=== PATIENT | female | born 1945 | race Caucasian/White ===

== ENCOUNTER → 2017-04-10 | Outpatient (CLI) | payer MEDICARE, SELFPAY | PROVIDERS: PCP Internal Medicine Adolescent Medicine; Visit Provider Internal Medicine Adolescent Medicine | DX: R91.8 Other nonspecific abnormal finding of lung field (principal) | CPT/HCPCS: 71250 ==

== ENCOUNTER → 2018-02-19 14:09 | Outpatient (CLI) | payer MEDICARE, SELFPAY ==
--- NOTE | 2018-02-19 14:12 | US_ITS ---
US kidney retroperitoneal comp HISTORY: ITS.REASON: URINARY RETENTION ORDERING PHYSICIAN: Rom Menjivar MD PATIENT AGE: 72 years Comparison: None FINDINGS: RIGHT KIDNEY:Unremarkable. Normal size and echogenicity. No hydronephrosis 11 x 4 x 7 cm LEFT KIDNEY:Unremarkable. No hydronephrosis. Normal size and echogenicity. 13 x 5 x 5 cm OTHER FINDINGS: No cortical thinning. Bilateral blood flow is present IMPRESSION: Unremarkable bilateral renal ultrasound. No hydronephrosis
[2018-02-19 15:52] LABS: Anion Gap 11.7 mEq/L (5-15); Blood Urea Nitrogen 8 mg/dL (7-18); Calcium 9.3 mg/dL (8.5-10.1); Carbon Dioxide 29 mmol/L (21.0-32.0); Chloride 102 mmol/L (98-107); Creatinine,Serum 0.64 mg/dL (0.55-1.02); Estimated Glomerular Filt Rate 91 ml/min (>60); GFR (African American) 111 ML/MIN (>60); Glucose 96 mg/dL (74-106); Potassium 3.7 mmoL/L (3.5-5.1); Sodium 139 mmol/L (136-145)
== END ==
PROVIDERS: PCP Internal Medicine Adolescent Medicine; Visit Provider Internal Medicine Adolescent Medicine
DX: R33.9 Retention of urine, unspecified (principal)
CPT/HCPCS: 36415; 76770; 80048

== ENCOUNTER → 2018-06-10 10:33 | Outpatient (CLI) | payer MEDICARE, SELFPAY ==
--- NOTE | 2018-06-10 10:42 | MM_ITS ---
MM Dig screening mamm BI w/CAD CAD Screening COMPARISON: Digital mammograms with CAD 02/14/2017 and 07/25/2015 INDICATION: There is no personal or family history of breast cancer TECHNIQUE: Standard CC and MLO images were obtained. R2 CAD reviewed. FINDINGS: Prominent diffuse heterogenic fibroglandular densities are seen throughout both breast. There are scattered benign-appearing microcalcifications in each breast. There is a new and somewhat suspicious asymmetric density upper aspect of the right breast only definitely seen on the MLO view. Recommend the patient return for spot compression views in MLO and CC projection. I am not certain of the location of the suspicious lesion on the CC projection and recommend rolled cc views as well and possibly ultrasound as necessary as well. There are no suspicious microcalcifications. IMPRESSION: Prominent diffuse heterogenic breast density with possible developing asymmetric lesion right breast BI-RADS Category: 0 Need Additional Imaging Evaluation RECOMMENDED FOLLOW-UP: IMM - IMMEDIATE FOLLOW-UP RECOMMENDED (A letter has been sent to the patient regarding results of the study.)
--- NOTE | 2018-06-10 10:42 | XR_ITS ---
XR DEXA axial skeleton HISTORY: ITS.REASON: POST MENOPAUSAL SCREENING ORDERING PHYSICIAN: Rom Menjivar MD PATIENT AGE: 72 years COMPARISON: 07/25/2015 FINDINGS: The BMD measured at the Right femoral neck is 0.749 g/cm squared with a T score of -2.1. This is considered Osteopenic according to the World Health Organization criteria. Fracture risk is Moderate. Treatment is advised. L1 L4 density has a T score of 2.2 and has increased by 5.7%. The main hip density is unchanged. IMPRESSION: Osteopenia with moderate fracture risk. Treatment is advised. Suggest follow-up exam May 2020
== END ==
PROVIDERS: PCP Internal Medicine Adolescent Medicine; Visit Provider Internal Medicine Adolescent Medicine
DX: Z12.31 Encounter for screening mammogram for malignant neoplasm of breast (principal); Z13.820 Encounter for screening for osteoporosis; Z78.0 Asymptomatic menopausal state
CPT/HCPCS: 77067; 77080

== ENCOUNTER → 2018-06-26 14:15 | Outpatient (CLI) | payer MEDICARE, SELFPAY ==
--- NOTE | 2018-06-26 14:19 | MM_ITS ---
MM Dig mamm DX unilat RT CAD, US breast RT complete INDICATION: Follow-up abnormal mammogram ORDERING PHYSICIAN: Rom Menjivar MD PATIENT AGE: 72 years COMPARISON: 06/10/2018, 03/04/2017, 07/25/2015 TECHNIQUE: Problem-solving views performed of the right breast along with right breast ultrasound. FINDINGS: Dense fibroglandular tissue which decreases the sensitivity of mammography. The asymmetric nodular density in the superior aspect of the right breast appear somewhat less apparent on the spot view. The density noted in the medial aspect of the right breast is not well demonstrated on the spot view and may been due to fibroglandular tissue also not well demonstrated on the rolled views. There is however persistent 5 mm nodular opacity in the central aspect of the right breast. Right-sided ductal ectasia also suspected. Right breast ultrasound: There is ductal ectasia. At 10:00 there is a 5 mm cyst along small nodes in the right axilla. IMPRESSION: No convincing evidence of malignancy. Nodular opacity and central aspect of the breast may correspond to a cyst. Recommend 6 month mammographic and sonographic follow-up of the right breast BI-RADS Category: 3 Probably Benign Finding Short Term Follow-up RECOMMENDED FOLLOW-UP: 6M - 6 MONTH FOLLOW-UP (A letter has been sent to the patient regarding results of the study.)
== END ==
PROVIDERS: PCP Internal Medicine Adolescent Medicine; Visit Provider Internal Medicine Adolescent Medicine
DX: R92.8 Other abnormal and inconclusive findings on diagnostic imaging of breast (principal)
CPT/HCPCS: 76641; 77065

== ENCOUNTER → 2018-11-28 15:06 | Outpatient (CLI) | payer MEDICARE, SELFPAY ==
--- NOTE | 2018-11-28 15:18 | CT_ITS ---
PROCEDURE: CT LUNG SCREENING CLINICAL INDICATION: HX NICOTINE DEPENDENCE COMPARISON: [facility] CT CHEST W/O CONTRAST from 04/10/2017 TECHNIQUE: The exam was performed on a GE Light Speed [address] scanner using 2.90 mGy CTDI. A low dose helical CT CHEST was performed on a multi-detector scanner. All CT scans at the facility use one or more dose reduction, viz: automated exposure control, ma/kV adjustment per patient size (including targeted exams where dose is matched to indication, i.e. head), or iterative reconstruction technique. The LDCT was performed in a facility that meets the criteria for the screening program. Data regarding this exam was submitted to ACR which is an approved registry. The order for this exam indicates that it came as a result of a lung cancer screening counseling shard decision-making visit that included all the elements required of such a visit including smoking cessation. The radiologist interpreting this exam meets the CMS criteria for the LDCT lung cancer screening program. The exam is reported using the Lung-RADS classification scale and reported to the ACR registry. NOTE: This study was performed for the specific purposes of lung cancer screening and is not an alternative to diagnostic chest CT. RADIATION DOSE: CTDI vol(CT dose Index-volume) = 2.90mG DLP (Dose Length Product) = 100.81 mGcm FINDINGS: Artifact is present from anterior cervical disc fusion. There are scattered noncalcified pulmonary nodules. These appear stable when compared to the previous exam. The largest nodule is in the right upper lobe anteriorly at approximately 5 mm. Calcified granuloma is present in the left upper lobe. There are centrilobular emphysematous changes. There are fibrotic changes within the lingula OTHER FINDINGS: Coronary artery calcifications. 1.5 cm hepatic cyst at the region of the IVC IMPRESSION: Centrilobular emphysema with scattered pulmonary nodules unchanged Lung rads category 2 benign findings Recommendations: 12 month LDCT follow-up Dictated by: Anatoliy Lee MD 12/08/2018 13:18 Signed by: <Electronically signed by Anatoliy Lee MD in [place]> 12/08/2018 13:18
== END ==
PROVIDERS: PCP Internal Medicine Adolescent Medicine; Visit Provider Internal Medicine Adolescent Medicine
DX: Z87.891 Personal history of nicotine dependence (principal); Z12.2 Encounter for screening for malignant neoplasm of respiratory organs

== ENCOUNTER → 2018-12-19 12:54 | Outpatient (CLI) | payer MEDICARE, SELFPAY ==
--- NOTE | 2018-12-19 12:58 | MM_ITS ---
PROCEDURE: MM DIG MAMM DX UNILAT RT CAD CLINICAL INDICATION: ABNORMAL MAMM COMPARISON: DXRT MM Dig mamm DX unilat RT CAD from 06/26/2018 US BREAST RT COMPLETE from 12/19/2018 TECHNIQUE: Standard CC and MLO images were obtained. R2 CAD reviewed. Spot-compression MLO and CC views obtained as well. FINDINGS: Diffuse heterogenic fibroglandular densities are again noted. The asymmetric density central portion is somewhat less prominent on today's study. There are no new or suspicious lesions seen a few scattered benign-appearing calcifications are again noted. Ultrasound performed same date showed a stable small cystic lesion at the 10 o'clock position IMPRESSION: Stable exam with no suspicious lesions seen BI-RAD Category: 3 Probably Benign Finding Short Term Follow-up FOLLOW-UP: 6M 6Month Follow-up to return to normal yearly screening schedule (A letter has been sent to the patient regarding results of the study.) Dictated by: Dr. Tomas De La Rosa MD 12/19/2018 14:[address] Tomas De La Rosa MD in [place] 12/19/2018 14:21
--- NOTE | 2018-12-19 12:58 | US_ITS ---
PROCEDURE: US BREAST RT COMPLETE CLINICAL INDICATION: ABNORMAL MAMM COMPARISON: BREASTRT US breast RT complete from 06/26/2018 FINDINGS: There is a small oval hypoechoic cystic-appearing lesion at the 10 o'clock position near the nipple measuring 0.5 by 0.6 x 0.2 cm stable and unchanged in appearance from the previous exam. There is mild ductal ectasia in the subareolar region. There are couple normal appearing nodes in the axilla. IMPRESSION: Stable small benign-appearing cystic lesion as described recommended patient continue yearly screening mammography Dictated by: Dr. Tomas De La Rosa MD 12/19/2018 14:[address] Tomas De La Rosa MD in [place] 12/19/2018 14:28
== END ==
PROVIDERS: PCP Internal Medicine Adolescent Medicine; Visit Provider Internal Medicine Adolescent Medicine
DX: R92.8 Other abnormal and inconclusive findings on diagnostic imaging of breast (principal)
CPT/HCPCS: 76641; 77065

== ENCOUNTER → 2019-01-22 14:25 | Outpatient (CLI) | payer MEDICARE, SELFPAY ==
--- NOTE | 2019-01-22 14:33 | MR_ITS ---
PROCEDURE: MR LUMBAR SPINE WO CON CLINICAL INDICATION: RIGHT SCIATIC NERVE PAIN Low back pain radiating into the right lower extremity COMPARISON: No exams were available for comparison TECHNIQUE: Standard multiplanar multiecho sequences are performed without contrast. 3-D MIP and myelographic images are also rendered and reviewed FINDINGS: Spine the spinal cord ends at the T12-L1 level. In T12-L1: Mild concentric bulging disc with mild degenerative disc disease. Mild bilateral lateral recess narrowing. L1-L2: There is a small to medium sized right paracentral disc herniation with superior extrusion. The superiorly extruded portion of the disc measures 16 mm in length and 13 mm in with and is approximately 5 mm in thickness. This does cause right lateral recess narrowing and abuts the cauda equina on the right with right lateral recess narrowing somewhat accentuated by the facet and ligamentum hypertrophic changes. There is mild degenerative disc disease with mild bulging disc also at this level. There is moderate to severe right-sided foraminal narrowing as well. L2-L3: Bulging disc along with moderate facet and ligamentum hypertrophy with moderate bilateral lateral recess narrowing and moderate to severe right-sided foraminal narrowing L3-L4: Bulging disc with moderate to severe facet and ligamentum hypertrophy with severe bilateral lateral recess and moderate to severe bilateral foraminal narrowing with canal stenosis. The canal measures 7 mm. L4-5: Degenerate disc disease. There is 5 mm anterolisthesis of L4 with bulging disc at this level along with facet ligamentum hypertrophy with moderate to severe right foraminal narrowing and severe left foraminal narrowing along with bilateral lateral recess narrowing greater on the left. There is borderline narrowing of the canal at 12 mm. L5-S1: Degenerate disc disease with bulging disc with facet and ligamentum hypertrophy with mild to moderate right foraminal narrowing and moderate to severe left foraminal narrowing. No fracture or dislocation. IMPRESSION: 1. Abnormal MRI of the lumbar spine with multilevel degenerative disc disease along with facet and ligamentum hypertrophy with areas of foraminal and lateral recess narrowing along with canal stenosis. Please see above for detailed description at each level. 2. L1-L2: There is a small to medium sized right paracentral disc herniation with superior extrusion. The superiorly extruded portion of the disc measures 16 mm in length and 13 mm in with and is approximately 5 mm in thickness. This does cause right lateral recess narrowing and abuts the cauda equina on the right with right lateral recess narrowing somewhat accentuated by the facet and ligamentum hypertrophic changes. There is mild degenerative disc disease with mild bulging disc also at this level. There is moderate to severe right-sided foraminal narrowing as well. 3. L2-L3: Bulging disc along with moderate facet and ligamentum hypertrophy with moderate bilateral lateral recess narrowing and moderate to severe right-sided foraminal narrowing 4. L3-L4: Bulging disc with moderate to severe facet and ligamentum hypertrophy with severe bilateral lateral recess and moderate to severe bilateral foraminal narrowing with canal stenosis. The canal measures 7 mm. 5. L4-5: Degenerate disc disease. There is 5 mm anterolisthesis of L4 with bulging disc at this level along with facet ligamentum hypertrophy with moderate to severe right foraminal narrowing and severe left foraminal narrowing along with bilateral lateral recess narrowing greater on the left. There is borderline narrowing of the canal at 12 mm. 6. L5-S1: Degenerate disc disease with bulging disc with facet and ligamentum hypertro
== END ==
PROVIDERS: PCP Internal Medicine Adolescent Medicine; Visit Provider Internal Medicine Adolescent Medicine
DX: M54.31 Sciatica, right side (principal)
CPT/HCPCS: 72148; 76376

== ENCOUNTER → 2019-10-12 14:54 | Outpatient (CLI) | payer MEDICARE, SELFPAY ==
--- NOTE | 2019-10-12 14:58 | MM_ITS ---
PROCEDURE: MM DIG SCREENING MAMM BI W/CAD Digital Breast Tomosynthesis Included CLINICAL INDICATION: ABN MAMM There is no personal or family history of breast cancer. COMPARISON: [facility] DIG MAMM-SCREEN [facility] from 07/25/2015 [facility] DIG MAMM-SCREEN [facility] W/CAD from 02/14/2017 [facility] MM Dig screening mamm BI w/CAD from 06/10/2018 [facility] MM Dig mamm DX unilat RT CAD from 06/26/2018 MM DIG MAMM DX UNILAT RT CAD from 12/19/2018 TECHNIQUE: Standard CC and MLO images and 3D Tomosynthesis was obtained. R2 CAD reviewed. FINDINGS: Is heterogenic fibroglandular densities are seen throughout both breasts and the findings are fairly symmetrical bilaterally. There are scattered benign-appearing micro and macrocalcifications in each breast. There is a mole marker left breast. There is a biopsy clip left breast. There is no new or suspicious lesion in either breast and no suspicious microcalcifications. IMPRESSION: Stable dense and heterogenic parenchymal pattern with no suspicious lesions seen BI-RAD Category: 2 Benign Finding(s) FOLLOW-UP: 1YR 1 Year Follow-up (A letter has been sent to the patient regarding results of the study.) Dictated by: Dr. Tmoas De La Rosa MD 10/14/2019 14:[address] Tomas De La Rosa MD in [place] 10/14/2019 14:46
--- NOTE | 2019-10-12 14:59 | US_ITS ---
PROCEDURE: US BREAST RT COMPLETE CLINICAL INDICATION: ABN MAMM COMPARISON: US BREAST RT COMPLETE from 12/19/2018 FINDINGS: Small ductal area noted at 10 o'clock and in the retroareolar region. Small nodes in the axilla. No malignant appearing mass or malignant-appearing microcalcification IMPRESSION: Benign findings. BI-RADS category 2. Recommend annual follow-up Dictated by: Anatoliy Lee MD 10/16/2019 13:07 Electronically signed by Anatoliy Lee MD in [place] 10/16/2019 13:07
== END ==
PROVIDERS: PCP Internal Medicine Adolescent Medicine; Visit Provider Internal Medicine Adolescent Medicine
DX: R92.8 Other abnormal and inconclusive findings on diagnostic imaging of breast (principal); Z12.31 Encounter for screening mammogram for malignant neoplasm of breast
CPT/HCPCS: 76641; 77063; 77067

== ENCOUNTER → 2020-04-14 15:27 | Outpatient (CLI) | payer MEDICARE, SELFPAY ==
--- NOTE | 2020-04-14 | CA_ITS ---
APPROVED REPORT Right Lower Extremity Venous Study for DVT. [employer] Operator: AMINA Indications Lower Extremity Pain: Right Current Smoker Patient denies trauma. States her right leg began hurting several weeks ago. The leg will be fine when she wakes up but hurts and swells as the day progresses. Vein Imaging CFV (R): compressive, spontaneous, phasic, augmentation FEM (R): compressive, spontaneous, phasic, augmentation POP (R): compressive, spontaneous, phasic, augmentation PTV (R): Compressible GSV (R): compressive, spontaneous, phasic, augmentation SSV (R): Compressible Peroneals (R):Compressible GAS (R): Compressible Findings No evidence of DVT or superficial thrombophlebitis in the veins scanned of the right lower extremity. Conclusion No evidence of DVT or superficial thrombophlebitis in the veins scanned of the right lower extremity. Electronically signed by : Anatoliy Lee MD 04/18/2020 17:28:30
== END ==
PROVIDERS: PCP Internal Medicine Adolescent Medicine; Visit Provider Internal Medicine Adolescent Medicine
DX: M79.604 Pain in right leg (principal); R60.0 Localized edema
CPT/HCPCS: 93971

== ENCOUNTER → 2020-05-06 15:49 | Outpatient (CLI) | payer MEDICARE, SELFPAY ==
--- NOTE | 2020-05-06 15:51 | CT_ITS ---
PROCEDURE: CT LUNG SCREENING CLINICAL INDICATION: HX OF NICOTINE DEPENDENCE CURRENT SMOKER 53-79.5 pack year smoking history COPD PRIOR 11/28/18 COMPARISON: CT CT LUNG SCREENING from 11/28/2018 TECHNIQUE: The exam was performed on a GE Light Speed [address] scanner using 2.90 mGy CTDI. A low dose helical CT CHEST was performed on a multi-detector scanner. All CT scans at the facility use one or more dose reduction, viz: automated exposure control, ma/kV adjustment per patient size (including targeted exams where dose is matched to indication, i.e. head), or iterative reconstruction technique. The LDCT was performed in a facility that meets the criteria for the screening program. Data regarding this exam was submitted to ACR which is an approved registry. The order for this exam indicates that it came as a result of a lung cancer screening counseling shard decision-making visit that included all the elements required of such a visit including smoking cessation. The radiologist interpreting this exam meets the CMS criteria for the LDCT lung cancer screening program. The exam is reported using the Lung-RADS classification scale and reported to the ACR registry. NOTE: This study was performed for the specific purposes of lung cancer screening and is not an alternative to diagnostic chest CT. RADIATION DOSE: CTDI vol(CT dose Index-volume) = 2.90mG DLP (Dose Length Product) = 99.51 mGcm FINDINGS: Centrilobular emphysema . There are scattered small pulmonary nodules the largest in the right upper lobe at 5 mm not significantly changed.. No suspicious pulmonary nodules apparent. There is chronic volume loss/mild consolidation within the lingula which is slightly worse compared to the previous exam. OTHER FINDINGS: Coronary artery calcifications. Degenerative changes thoracic spine. 1.5 cm up attic cyst IMPRESSION: Lung-RADS Category 1 Negative Follow-up: Continue annual screening with LDCT in 12 months Dictated by: Anatoliy Lee MD 05/16/2020 06:38 Anatoliy Lee MD in [place] 05/16/2020 06:38
== END ==
PROVIDERS: PCP Internal Medicine Adolescent Medicine; Visit Provider Internal Medicine Adolescent Medicine
DX: Z87.891 Personal history of nicotine dependence (principal); Z12.2 Encounter for screening for malignant neoplasm of respiratory organs
CPT/HCPCS: 71271

== ENCOUNTER → 2020-12-27 11:13 | Outpatient (CLI) | payer MEDICARE, SELFPAY ==
--- NOTE | 2020-12-27 11:15 | MM_ITS ---
PROCEDURE: MM DIG SCREENING MAMM BI W/CAD Digital Breast Tomosynthesis Included CLINICAL INDICATION: SCREENING COMPARISON: MG DXRT MM Dig mamm DX unilat RT CAD from 06/26/2018 MG MM DIG MAMM DX UNILAT RT CAD from 12/19/2018 MG MM DIG SCREENING MAMM BI W/CAD from 10/12/2019 TECHNIQUE: Standard CC and MLO images and 3D Tomosynthesis was obtained. R2 CAD reviewed. FINDINGS: The breasts are heterogeneously dense which may obscure small masses. No suspicious appearing mass, malignant-appearing microcalcification, architectural distortion, or skin thickening. There benign-appearing calcifications bilaterally. A biopsy clip is present in the lower inner aspect of the left breast. IMPRESSION: Benign findings. No significant change BI-RAD Category: 2 Benign Finding FOLLOW-UP: 1 YR 1 Year Follow-up (A letter has been sent to the patient regarding results of the study.) Dictated by: Anatoliy Lee MD 01/16/2021 08:29 Anatoliy Lee MD in [place] 01/16/2021 08:29
== END ==
PROVIDERS: PCP Internal Medicine Adolescent Medicine; Visit Provider Internal Medicine Adolescent Medicine
DX: Z12.31 Encounter for screening mammogram for malignant neoplasm of breast (principal)
CPT/HCPCS: 77063; 77067

== ENCOUNTER → 2021-01-23 15:52 | Outpatient (CLI) | payer MEDICARE, SELFPAY ==
--- NOTE | 2021-01-23 15:57 | XR_ITS ---
PROCEDURE INFORMATION: Exam: XR Right Knee Exam date and time: 01/23/21 03:57 PM Age: 75 years old Clinical indication: Pain; Knee; Right; Additional info: RT anterior knee pain TECHNIQUE: Imaging protocol: XR Right knee. Views: 3 views. COMPARISON: CA VENOUS DOPPLER LE RT 04/14/20 03:38 PM FINDINGS: Bones/joints: Tricompartmental degenerative changes, most severe in the medial compartment. Large suprapatellar effusion. Soft tissues: Normal. IMPRESSION: 1. Tricompartmental degenerative changes, most severe in the medial compartment. 2. Large suprapatellar effusion.
--- NOTE | 2021-01-23 15:57 | XR_ITS ---
PROCEDURE INFORMATION: Exam: XR Right Hip Exam date and time: 01/23/21 03:57 PM Age: 75 years old Clinical indication: Hip pain; Right hip; Additional info: RT hip pain TECHNIQUE: Imaging protocol: XR Right hip. Views: 2 or 3 views hip with pelvis when performed. COMPARISON: MR LUMBAR SPINE WO CON 01/22/19 03:29 PM FINDINGS: Bones/joints: PLIF lumbar spine. Mild degenerative change. No acute fracture. Soft tissues: Unremarkable. IMPRESSION: No acute findings.
--- NOTE | 2021-01-23 15:57 | XR_ITS ---
PROCEDURE INFORMATION: Exam: XR Bilateral Sacroiliac Joints Exam date and time: 01/23/2021 3:57 PM Age: 75 years old Clinical indication: Other: Right hip pain; Prior surgery; Surgery type: Lower back; Additional info: RT hip pain TECHNIQUE: Imaging protocol: XR Bilateral XR of the sacroiliac joints. Views: 3 or more views. COMPARISON: MR LUMBAR SPINE WO CON 01/22/2019 3:29 PM FINDINGS: Bones/joints: Mild bilateral sacroiliitis, with periarticular sclerosis and mild inferior periarticular spurring. No ankylosis. No lytic erosive changes. Bones overall appear slightly demineralized. No acute fracture or dislocation.There are no lytic skeletal lesions seen. There is a 1 cm sclerotic lesion projected over the right sacrum, which could be a small bone island, superimposed vascular calcification, or less likely aggressive blastic neoplasm. No other blastic lesions are seen in the visualized pelvis. There are mild degenerative changes of the hip joints greater on the left. There are lower lumbar degenerative and surgical changes, with disc disease, spondylosis, facet arthropathy, fusion hardware. Soft tissues: No acute findings in the soft tissues. Some vascular calcifications noted in the pelvis. IMPRESSION: 1. Mild bilateral sacroiliitis, with slight periarticular sclerosis and spurs. 2. No ankylosis or lytic changes at the sacroiliac joints. 3. No acute fracture or dislocation. 4. Mild hip degenerative changes, which appear greater on the left. 5. Lumbosacral degenerative and surgical changes. 6. Additional nonemergency and chronic appearing findings as above.
== END ==
PROVIDERS: PCP Internal Medicine Adolescent Medicine; Visit Provider Internal Medicine Adolescent Medicine
DX: M25.551 Pain in right hip (principal); M25.561 Pain in right knee; M53.3 Sacrococcygeal disorders, not elsewhere classified
CPT/HCPCS: 72202; 73502; 73562

== ENCOUNTER → 2021-06-20 13:42 | Outpatient (CLI) | payer MEDICARE, SELFPAY ==
--- NOTE | 2021-06-20 14:20 | CT_ITS ---
FINAL REPORT TECHNIQUE: Axial images were obtained from the lung apex to the mid abdomen by computed tomography. Low-dose protocol was utilized. CLINICAL HISTORY: H/O NICOTINE DEPENDENCE, smoker for 54 years, 1pack per day, copd COMPARISON: 05/06/2020 FINDINGS: CHEST CT LOW DOSE CTDI vol (mGy): 2.7 DLP (mGy-cm): 95.1 There is no axillary adenopathy. There is no hilar or mediastinal adenopathy. The heart is normal in size. There is no pericardial or pleural effusion. Lung window images demonstrate no suspicious infiltrate or nodule. There is moderate scarring and mild emphysema. Several calcified granulomas are identified. Limited images of the upper abdomen demonstrate mild adrenal gland enhancement, may represent hyperplasia or adenomas. IMPRESSION: Lung RADS category 1. Recommend 12 month follow-up low-dose chest CT. Reviewed, Interpreted and Dictated by Vitor Parnell III, MD Transcribed by Mayela Garcia Authenticated by Vitor Parnell III, MD on 06/20/2021 04:14:49 PM [facility]
== END ==
PROVIDERS: PCP Internal Medicine Adolescent Medicine; Visit Provider Internal Medicine Adolescent Medicine
DX: Z87.891 Personal history of nicotine dependence (principal); Z12.2 Encounter for screening for malignant neoplasm of respiratory organs
CPT/HCPCS: 71271

== ENCOUNTER → 2021-12-22 15:28 | Outpatient (CLI) | payer MEDICARE, SELFPAY | PROVIDERS: PCP Internal Medicine Adolescent Medicine; Visit Provider Orthopaedic Surgery | DX: Z01.812 Encounter for preprocedural laboratory examination (principal); Z20.822 Contact with and (suspected) exposure to COVID-19 | CPT/HCPCS: C9803; U0003; U0005 ==

== ENCOUNTER 2022-02-23 11:00 | Outpatient (RCR) | payer MEDICARE, SELFPAY | END 2022-02-23 11:05 | disposition home or self-care (01) | LOC: PT 11:00 | PROVIDERS: PCP Internal Medicine Adolescent Medicine; Visit Provider Orthopaedic Surgery | DX: M17.11 Unilateral primary osteoarthritis, right knee; Z96.651 Presence of right artificial knee joint | CPT/HCPCS: 97010; 97014; 97016; 97110; 97140; 97163; 97164; G0283 ==

== ENCOUNTER → 2022-08-03 14:53 | Outpatient (CLI) | payer MEDICARE, SELFPAY ==
--- NOTE | 2022-08-03 14:57 | CT_ITS ---
FINAL REPORT CLINICAL HISTORY: CANCER SCREENING SMOKES 1 PK PER DAY X 55 YRS FAMILY HISTORY OF LUNG CA COMPARISON: 06/20/2021 and 11/28/2018 FINDINGS: Low-Dose Chest CT Axial images were obtained from the lung apex to the mid abdomen by computed tomography. Low-dose protocol was utilized. CTDI vol (mGy): 2.90 DLP (mGy-cm): 106.81 There is no axillary adenopathy. There is no hilar adenopathy. There is mild mediastinal adenopathy, stable. This is nonspecific and may be reactive. The heart is proper size. There is no pericardial or pleural effusion. Lung window images demonstrate moderate changes of emphysema and mild pulmonary scarring. There are several small pulmonary nodules with the largest measuring 5 mm in the right upper lobe, stable since 2019. No new mass or nodule is identified. Limited images of the upper abdomen are unremarkable. IMPRESSION: Stable pulmonary nodules since 2019. No new mass or nodule identified. Lung RADS category 1. Recommend 12 month follow-up low-dose chest CT. Reviewed, Interpreted and Dictated by Vitor Parnell III, MD Transcribed by Claudia Brady Authenticated and [facility]
== END ==
PROVIDERS: PCP Internal Medicine Adolescent Medicine; Visit Provider Internal Medicine Adolescent Medicine
DX: Z87.891 Personal history of nicotine dependence (principal); Z12.2 Encounter for screening for malignant neoplasm of respiratory organs
CPT/HCPCS: 71271

== ENCOUNTER → 2022-08-09 13:03 | Outpatient (CLI) | payer MEDICARE, SELFPAY ==
--- NOTE | 2022-08-09 13:07 | MM_ITS ---
PROCEDURE INFORMATION: Exam: MG Bilateral Screening 3D Mammography Exam date and time: 08/09/2022 1:04 PM Age: 76 years old Clinical indication: Screening examination TECHNIQUE: Imaging protocol: Bilateral Screening tomosynthesis and 2D mammography including computer-aided detection (CAD) when performed. COMPARISON: 1. MG MM DIG SCREENING MAMM BI W/CAD 12/27/2020 11:13 AM 2. MG MM DIG SCREENING MAMM BI W/CAD 10/12/2019 3:01 PM 3. MG MM DIG MAMM DX UNILAT RT CAD 12/19/2018 1:17 PM 4. MG DXRT MM Dig mamm DX unilat RT CAD 06/26/2018 3:18 PM FINDINGS: MAMMOGRAPHY: Breast composition: The breast is heterogeneously dense, which may obscure small masses. Mass: None. Architectural distortion: No new or suspicious architectural distortion. Calcifications: Stable benign-appearing calcifications are present. No new or suspicious cluster of microcalcifications have developed. Asymmetric density: No new or suspicious asymmetric density is present Skin thickening: None. Axillary adenopathy: None. IMPRESSION: No mammographic evidence of malignancy. Recommend annual screening mammography unless otherwise clinically indicated. ASSESSMENT: BI-RADS category 2: Benign
== END ==
PROVIDERS: PCP Internal Medicine Adolescent Medicine; Visit Provider Internal Medicine Adolescent Medicine
DX: Z12.31 Encounter for screening mammogram for malignant neoplasm of breast (principal)
CPT/HCPCS: 77063; 77067

== ENCOUNTER → 2022-12-28 15:15 | Outpatient (CLI) | payer MEDICARE, SELFPAY ==
--- NOTE | 2022-12-28 15:18 | XR_ITS ---
FINAL REPORT CLINICAL HISTORY: cough, soa COMPARISON: None FINDINGS: Two views of the chest were obtained. There is hyperinflation compatible with chronic obstructive pulmonary disease. The heart size and pulmonary vascularity are within normal limits. The mediastinum is normal. No acute pulmonary abnormality is identified. There is no pneumothorax. The bony thorax is intact. There are postoperative changes noted in the lower cervical spine. IMPRESSION: Hyperinflation consistent with COPD. No acute pulmonary abnormality. Reviewed, Interpreted and Dictated by Vitor Parnell III, MD Transcribed by Bre Landry Authenticated and [facility]
== END ==
PROVIDERS: PCP Internal Medicine Adolescent Medicine; Visit Provider Student in an Organized Health Care Education/Training Program
DX: R05.9 Cough, unspecified (principal); R06.00 Dyspnea, unspecified; J32.9 Chronic sinusitis, unspecified
CPT/HCPCS: 71046; 87635

== ENCOUNTER 2023-02-18 17:29 | Emergency (ER) | payer MEDICARE, SELFPAY ==
--- NOTE | 2023-02-18 18:35 | PC.NURSE ---
PT CANT GO TO THE BATHROOM RIGHT NOW
[2023-02-18 18:47] VITALS: BP 150/71; PULSE 81; RESP 18; TEMP 36.8; O2SAT 97; BMI 21.9
[2023-02-18 18:55] VITALS: BMI 21.9
--- NOTE | 2023-02-18 18:57 | CT_ITS ---
PROCEDURE INFORMATION: Exam: CT Abdomen And Pelvis Without And With Contrast Exam date and time: 02/18/2023 8:47 PM Age: 77 years old Clinical indication: Abdominal pain; Additional info: Abd pain TECHNIQUE: Imaging protocol: Computed tomography of the abdomen and pelvis without and with contrast. Radiation optimization: All CT scans at this facility use at least one of these dose optimization techniques: automated exposure control; mA and/or kV adjustment per patient size (includes targeted exams where dose is matched to clinical indication); or iterative reconstruction. Contrast material: ISOVUE; Contrast volume: 75 ml; Contrast route: INTRAVENOUS (IV); REPORTING DATA: Count of CT and Cardiac NM exams in prior 12 months: This patient has received [address] and 0 known cardiac nuclear medicine studies in the 12 months prior to the current study. COMPARISON: CR XR HIP RT 2-3V W/PELVIS 01/23/2021 4:30 PM FINDINGS: Lungs: Lung bases are clear. Liver: 9 mm fluid density lesion compatible with cyst in the superior left lobe of liver on axial image 13 of series 5. Subcentimeter low-density lesion in the anterior liver on image 20 which is too small to characterize but likely a cyst. These lesions are also visible CT chest 04/10/2017. No follow-up of these lesions advised. Gallbladder and bile ducts: Normal. No calcified stones. No ductal dilation. Pancreas: Normal. No ductal dilation. Spleen: Normal. No splenomegaly. Adrenal glands: Normal. No mass. Kidneys and ureters: Normal. No hydronephrosis. Stomach and bowel: Diverticula noted throughout the colon. Colon otherwise unremarkable with no evidence of diverticulitis. GI tract structures otherwise unremarkable with no evident wall thickening allowing for incomplete distention. Appendix: Appendix is normal. No evidence of appendicitis. Intraperitoneal space: Unremarkable. No free air. No significant fluid collection. Vasculature: Atherosclerotic changes of the aorta and iliacs noted. No evidence of aneurysm. Lymph nodes: Unremarkable. No enlarged lymph nodes. Urinary bladder: Unremarkable as visualized. Reproductive: Unremarkable as visualized. Bones/joints: Unremarkable. No acute fracture. Soft tissues: Unremarkable. IMPRESSION: No acute abnormalities of the abdomen and pelvis. Nonemergent findings as above.
--- OUTSIDE RECORDS SUMMARY | 2023-02-18 19:03 | XMS_ITS | Patient Health Record ---
Author Name Unknown Organization [facility] Address [address] [facility] [address] [place] [address] Care Team Providers Care [employer] Name Role Phone Rom Menjivar Primary Care Provider ALLERGIES Allergen (clinical drug ingredient) Drug/Non Drug Allergy documented on EMR Reaction Allergy Type Onset Date Status Lortab 5/500 Unknown Drug Allergy Acti ve omeprazole omeprazole could not void Drug Allergy Active RESULTS Component Value Reference Range Notes LIPID PANEL, STANDARD (7600) Reviewed date:07/19/2022 08:48:35 AM Interpretation: Performing Lab:[facility] [employer] [id number] [facility], [id number] [place] Notes/Report: NON-FASTING; NON-FASTING; NON-FASTING CHOLESTEROL, TOTAL 156 <200 mg/dL HDL CHOLESTEROL 54 > OR = 50 mg/dL TRIGLYCERIDES 98 <150 mg/dL LDL-CHOLESTEROL 83 Reference range: <100 Desirable range <100 mg/dL for primary prevention; <70 mg/dL for patients with CHD or diabetic patients with > or = 2 CHD risk factors. LDL-C is now calculated using the Leigh calculation, which is a validated novel method providing better accuracy than the Friedewald equation in the estimation of LDL-C. Domenico VILLAR et al. AMY. 2013;310(19): 0864-7674 (http://education.Norstel.Oobafit/faq/ZOP983) CHOL/HDLC RATIO 2.9 <5.0 (calc) NON HDL CHOLESTEROL 102 <130 mg/dL (calc)
[2023-02-18 19:21] LABS: Basophils % 0.2 % (0.1-2.0); Eosinophils # 0.3 K/mm3 (0.0-0.4); Eosinophils % 2.6 % (0.1-12.0); Hematocrit 41.6 % (37.0-47.0); Hemoglobin 14.8 g/dL (12.2-16.2); Lymphocytes # 1.7 K/mm3 (0.7-4.5); Lymphocytes % 14.5 % (10-50); Mean Corpuscular HGB Conc 35.7 g/dL (31.8-35.4); Mean Corpuscular Hemoglobin 33.3 pg (27.0-31.2); Mean Corpuscular Volume 93.3 fl (81-99); Mean Platelet Volume 11.7 fl (7.4-10.4); Monocytes # 0.5 K/mm3 (0.1-1.0); Monocytes % 3.9 % (1.7-9.3); Neutrophils # 9.3 K/mm3 (1.8-7.8); Neutrophils % 78.7 % (37.0-80.0); Platelet Count 193 K/mm3 (142-424); Red Blood Count 4.45 M/mm3 (4.20-5.40); Red Cell Distribution Width 13.2 % (11.5-17.5); White Blood Count 11.8 K/mm3 (4.8-10.8)
[2023-02-18 19:28] LABS: Alanine Aminotransferase 21 U/L (12-78); Albumin Level 4.7 g/dl (3.5-5.0); Albumin/Globulin Ratio 1.7 (1.1-1.8); Alkaline Phosphatase 107 U/L (38-126); Anion Gap 12.5 mEq/L (5-15); Aspartate Amino Transferase 30 U/L (14-36); Bilirubin,Total 0.5 mg/dl (0.2-1.3); Blood Urea Nitrogen 9 mg/dl (7-17); Calcium 9.6 mg/dl (8.4-10.2); Carbon Dioxide 26 mmol/L (22.0-30.0); Chloride 98 mmol/L (98-107); Creatinine Clearance Estimated 45 mL/min (50-200); Estimated Glomerular Filt Rate 155 ml/min (>60); GFR (African American) 188 ML/MIN (>60); Globulin 2.7 g/dL (1.3-3.2); Glucose 116 mg/dl (74-100); Lipase 35 U/L (23-300); Potassium 3.5 mmoL/L (3.5-5.1); Sodium 133 mmol/L (136-145); Total Protein,Serum 7.4 g/dl (6.3-8.2)
--- NOTE | 2023-02-18 19:29 | PC.NURSE ---
patient assisted to bathroom
[2023-02-18 19:42] LABS: Microscopic, Urine URINE MICROSCOPIC (MICROSCOPIC)
--- NOTE | 2023-02-18 19:45 | HMH.EDGENADL ---
Discharge Plan Disposition Patient Disposition: Home, Self-Care Prescriptions Prescriptions: New prednisone 20 mg tablet 40 mg PO BID 5 Days Qty: 20 0RF nitrofurantoin monohyd/m-cryst [Macrobid] 100 mg capsule 100 mg PO BID 5 Days Qty: 10 0RF Rx Instructions: must administer with a meal/food No Action carvedilol 12.5 mg tablet 12.5 mg PO BID Patient Comments: TAKE ONE TABLET BY MOUTH TWICE DAILY bupropion HCl 150 mg tablet extended release 24 hr 150 mg PO DAILY gabapentin 100 mg capsule 100 mg PO TID Patient Comments: TAKE ONE CAPSULE BY MOUTH THREE TIMES DAILY MAY CAUSE DROWSINESS atorvastatin 40 mg tablet 40 mg PO DAILY Patient Comments: TAKE ONE TABLET BY MOUTH EVERY DAY alendronate 35 mg tablet 35 mg PO WEEKLY amlodipine 10 mg tablet 10 mg PO DAILY irbesartan 300 mg tablet 300 mg PO DAILY Patient Comments: TAKE ONE TABLET BY MOUTH EVERY DAY Stiolto Respimat 2.5-2.5 mcg/actuation mist inhalation Patient Comments: INHALE TWO PUFFS BY MOUTH EVERY DAY azithromycin [Zithromax Z-Prieto] 250 mg tablet See Rx Instructions PO .COMPLEX Qty: 6 0RF Rx Instructions: For 250 mg dose pack: take 500 mg today (day 1), then 250 mg for 4 days (days 2-5) PO prednisone 20 mg tablet 20 mg PO BID Qty: 10 0RF fluconazole 150 mg tablet 150 mg PO Q3D 0 Days Qty: 2 0RF Rx Instructions: may repeat second dose 72 hrs after first dose if symptoms persist Referrals Follow up/Referrals: Rom Menjivar MD [Primary Care Provider] - See instructions Activity Restrictions/Add. Instructions Additional Instructions/Restrictions: Macrobid twice daily for UTI, prednisone every morning for inflammation of the back. Also talked your family doctor about possibly following up with Dr. Rincon or physical therapy if back pain does not improve. Call your family doctor to establish care for this visit to the emergency department and schedule follow-up within 48 hours to ensure improvement. If you have any worsening of your condition or any other concerning signs or symptoms, return to the emergency department or your primary care doctor for further evaluation. Clinical Impressions Clinical Impression: Cystitis Back pain Qualifiers: Back pain location: low back pain Chronicity: acute Back pain laterality: right Sciatica presence: without sciatica Qualified Code(s): M54.50 - Low back pain, unspecified Discharge ED Provider: Nadeem Marshall General Adult HPI General Chief complaint: PAIN Stated complaint: back/stomach pain, no accident Time Seen by Provider: 02/18/23 17:43 Mode of Arrival: Ambulatory Source of Information: Patient Limitations: No Limitations Description of Symptoms (Recalled from ER Triage Doc. by RN): pt to ed c/o RLQ pain that started at approx 2pm. pt denies a hx of kidney stones. pt reports mild nausea, denies vomiting. pt denies any urinary symptoms. History of Present Illness HPI narrative: This is a 77-year-old female with history of chronic back pain, hypertension, hyperlipidemia presenting with flank pain and abdominal pain. Patient states that pain started few days prior to arrival. is right flank, constant, has been crescendo in nature since that time. Currently severe in intensity, radiates to right lower quadrant, associated with nausea without vomiting. Denies dysuria or hematuria, constipation, diarrhea, abnormal vaginal discharge or bleeding. Not on anticoagulation. Has not had any neurologic deficits. Has not noticed anything that makes it better or worse. Related Data Home Medications Medication Instructions Recorded Confirmed alendronate 35 mg tablet 35 mg PO WEEKLY 12/28/22 12/28/22 amlodipine 10 mg tablet 10 mg PO DAILY 12/28/22 12/28/22 atorvastatin 40 mg tablet 40 mg PO DAILY 12/28/22 12/28/22 bupropion HCl 150 mg 24 hr tablet, 150 mg PO DAILY 12/28/22 12/28/22 extended release
[2023-02-18 19:56] LABS: Appearance,Urine CLOUDY (Clear); Bilirubin,Urine Negative (Negative); Blood, Urine Negative (Negative); Color,Urine YELLOW (Yellow); Glucose,Urine (UA) Negative (Negative); Ketones,Urine Negative (Negative); Leukocyte Esterase,Urine TRACE (Negative); Nitrate,Urine Negative (Negative); Protein,Urine Negative (Negative); Urobilinogen,Urine 0.2 EU/dl (0.2)
--- NOTE | 2023-02-18 20:31 | PC.NURSE ---
Assisted patient to bathroom. Ambulated by self without issue. She requested water. confirmed ok for sips of water at this time, provided to patient. No further concerns or requests at present.
[2023-02-18 21:01] VITALS: BP 123/69; PULSE 73; RESP 16; TEMP 36.8; O2SAT 98
[2023-02-18 21:09] LABS: Amorphous Sediment,Urine 2+ /lpf; Bacteria,Urine Trace /lpf; Squamous Epithelial Cell,Urine Occasional #/hpf (0-5); WBC,Urine Occasional #/hpf (0-3)
[2023-02-18 21:30] VITALS: BP 126/65; PULSE 72; O2SAT 93
[2023-02-18 22:11] VITALS: BP 126/65; PULSE 72; RESP 18; TEMP 36.7; O2SAT 95
== END 2023-02-18 22:12 | disposition home or self-care (01) ==
PROVIDERS: Emergency Provider Emergency Medicine; PCP Internal Medicine Adolescent Medicine
DX: R10.31 Right lower quadrant pain (principal); M54.59 Other low back pain; N30.00 Acute cystitis without hematuria; R11.0 Nausea; I10 Essential (primary) hypertension; E78.5 Hyperlipidemia, unspecified; F17.210 Nicotine dependence, cigarettes, uncomplicated; J44.9 Chronic obstructive pulmonary disease, unspecified
CPT/HCPCS: 74178; 80053; 81001; 83690; 85025; 96361; 96374; 96375; 99285; J0131; J2405

== ENCOUNTER → 2023-03-01 10:55 | Outpatient (CLI) | payer MEDICARE, SELFPAY ==
[2023-03-01 11:00] LABS: Microscopic, Urine URINE MICROSCOPIC (MICROSCOPIC)
[2023-03-01 11:58] LABS: Appearance,Urine CLEAR (Clear); Bilirubin,Urine Negative (Negative); Blood, Urine Negative (Negative); Color,Urine YELLOW (Yellow); Glucose,Urine (UA) Negative (Negative); Ketones,Urine Negative (Negative); Leukocyte Esterase,Urine Negative (Negative); Nitrate,Urine Negative (Negative); Protein,Urine Negative (Negative); Urobilinogen,Urine 0.2 EU/dl (0.2)
[2023-03-01 13:45] LABS: Bacteria,Urine Trace /lpf; Squamous Epithelial Cell,Urine Occasional #/hpf (0-5); WBC,Urine Occasional #/hpf (0-3)
== END ==
PROVIDERS: PCP Internal Medicine Adolescent Medicine; Visit Provider Nurse Practitioner Family
DX: R10.31 Right lower quadrant pain (principal); M54.50 Low back pain, unspecified; R35.0 Frequency of micturition
CPT/HCPCS: 81001

== ENCOUNTER 2023-09-02 14:14 | Outpatient (CLI) | payer MEDICARE, SELFPAY ==
--- NOTE | 2023-09-02 14:21 | MM_ITS ---
PROCEDURE INFORMATION: Exam: MG Bilateral Screening 3D Mammography Exam date and time: 09/02/2023 2:22 PM Age: 77 years old Clinical indication: Screening. No family history of breast cancer. TECHNIQUE: Imaging protocol: Bilateral Screening tomosynthesis and 2D mammography including computer-aided detection (CAD) when performed. COMPARISON: 1. MG MM DIG SCREENING MAMM BI W/CAD 08/09/2022 1:04 PM 2. MG MM DIG SCREENING MAMM BI W/CAD 12/27/2020 11:13 AM 3. MG MM DIG SCREENING MAMM BI W/CAD 10/12/2019 3:01 PM 4. MG MM DIG MAMM DX UNILAT RT CAD 12/19/2018 1:17 PM FINDINGS: MAMMOGRAPHY: Breast composition: The breasts are heterogeneously dense, which may obscure small masses. Mass: None. Architectural distortion: None. Calcifications: No suspicious calcifications. Asymmetric density: None. Skin thickening: None. Axillary adenopathy: None. IMPRESSION: No mammographic evidence of malignancy. Annual screening is recommended unless otherwise clinically indicated. ASSESSMENT: BI-RADS Category 1: Negative
== END 2023-09-02 23:59 | disposition home or self-care (01) ==
LOC: RAD 14:14
PROVIDERS: PCP Internal Medicine Adolescent Medicine; Visit Provider Internal Medicine Adolescent Medicine
DX: Z12.31 Encounter for screening mammogram for malignant neoplasm of breast (principal)
CPT/HCPCS: 77063; 77067

== ENCOUNTER 2024-01-19 14:38 | Emergency (ER) | payer MEDICARE, SELFPAY ==
--- NOTE | 2024-01-19 14:55 | EXP.UTC ---
Discharge Plan Disposition Patient Disposition: Home, Self-Care Condition: Good Prescriptions Prescriptions: New benzonatate 100 mg capsule 100 mg PO TIDP PRN (Reason: Cough) Qty: 30 0RF levofloxacin 500 mg tablet 500 mg PO DAILY Qty: 7 0RF methylprednisolone 4 mg Tablets,Dose Pack 4 mg PO DIRECTED 6 Days Qty: 21 0RF Rx Instructions: Take 1 pack as directed for 6 days No Action carvedilol 12.5 mg tablet 12.5 mg PO BID Patient Comments: TAKE ONE TABLET BY MOUTH TWICE DAILY bupropion HCl 150 mg tablet extended release 24 hr 150 mg PO DAILY gabapentin 100 mg capsule 100 mg PO TID Patient Comments: TAKE ONE CAPSULE BY MOUTH THREE TIMES DAILY MAY CAUSE DROWSINESS atorvastatin 40 mg tablet 40 mg PO DAILY Patient Comments: TAKE ONE TABLET BY MOUTH EVERY DAY alendronate 35 mg tablet 35 mg PO WEEKLY amlodipine 10 mg tablet 10 mg PO DAILY irbesartan 300 mg tablet 300 mg PO DAILY Patient Comments: TAKE ONE TABLET BY MOUTH EVERY DAY Stiolto Respimat 2.5-2.5 mcg/actuation mist inhalation Patient Comments: INHALE TWO PUFFS BY MOUTH EVERY DAY azithromycin [Zithromax Z-Prieto] 250 mg tablet See Rx Instructions PO .COMPLEX Qty: 6 0RF Rx Instructions: For 250 mg dose pack: take 500 mg today (day 1), then 250 mg for 4 days (days 2-5) PO prednisone 20 mg tablet 20 mg PO BID Qty: 10 0RF fluconazole 150 mg tablet 150 mg PO Q3D 0 Days Qty: 2 0RF Rx Instructions: may repeat second dose 72 hrs after first dose if symptoms persist prednisone 20 mg tablet 40 mg PO BID 5 Days Qty: 20 0RF nitrofurantoin monohyd/m-cryst [Macrobid] 100 mg capsule 100 mg PO BID 5 Days Qty: 10 0RF Rx Instructions: must administer with a meal/food alendronate 35 mg tablet 35 mg PO WEEKLY Patient Comments: TAKE ONE TABLET BY MOUTH ONCE a WEEK gabapentin 100 mg capsule 100 mg PO DAILY Patient Comments: TAKE ONE CAPSULE BY MOUTH THREE TIMES DAILY MAY CAUSE DROWSINESS levofloxacin 750 mg tablet 750 mg PO DAILY Patient Comments: TAKE ONE TABLET BY MOUTH EVERY DAY FOR 7 DAYS -- FINISH ALL MEDICINE -- irbesartan 300 mg tablet 300 mg PO DIRECTED Patient Comments: TAKE ONE TABLET BY MOUTH EVERY DAY bupropion HCl 150 mg tablet extended release 24 hr 150 mg PO DAILY Patient Comments: TAKE ONE TABLET BY MOUTH EVERY DAY varenicline 0.5 mg tablet 0.5 mg PO DAILY Patient Comments: TAKE ONE TABLET BY MOUTH TWICE DAILY Stiolto Respimat 2.5-2.5 mcg/actuation mist 2.5 puff INHALATION DIRECTED Patient Comments: INHALE TWO PUFFS BY MOUTH EVERY DAY Referrals Follow up/Referrals: Rom Menjivar MD [Primary Care Provider] - See instructions Activity Restrictions/Add. Instructions Additional Instructions/Restrictions: Drink plenty of fluids. Take tylenol or ibuprofen for pain or fever. Take the medications as directed. Follow up with your regular doctor. GO TO THE ER FOR ANY WORSENING SYMPTOMS Don't start the oral steroids (medrol dose pack) until tomorrow since you had the shot here Clinical Impressions Clinical Impression: Left lower lobe pneumonia Instructions Patient Instructions: Pneumonia-Adult Print Language Print Language: Moroccan Discharge ED Provider: Kota Gregory [facility] General Stated complaint: weakness, fever Time Seen by Provider: 01/19/24 14:55 History of Present Illness Provider Complaint: She states that for the past 2 days she has had fatigue, low grade fever, chills, malaise, and a productive cough. Related Data Home Medications ?Medication ?Instructions ?Recorded ?Confirmed alendronate 35 mg tablet 35 mg PO WEEKLY 12/28/22 12/28/22 amlodipine 10 mg tablet 10 mg PO DAILY 12/28/22 12/28/22 atorvastatin 40 mg tablet 40 mg PO DAILY 12/28/22 12/28/22 bupropion HCl 150 mg 24 hr tablet, 150 mg PO DAILY 12/28/22 12/28/22 extended release carvedilol 12.5 mg tablet 12.5 mg PO BID 12/28/22 12/28/22 gabapentin 100 mg capsule 100 mg PO TID 12/28/22 12/28/22 irbesartan 300 mg tablet 300 mg PO DAILY 12/28/22 12/28/22 tiotropium 2.5 mcg-olodaterol 2.5 inhalation 12/28/22 12/28/22 mcg/actuation mist for inhalation (Stiolto Respimat) alendronate 35 mg tablet 35 mg PO WEEKLY 01/19/24 01/19/24 bupropion HCl 150 mg 24 hr tablet, 150 mg PO DAILY 01/19/24 01/19/24 extended release gabapentin 100 mg capsule 100 mg PO DAILY 01/19/24 01/19/24 irbesartan 300 mg tablet 300 mg PO DIRECTED 01/19/24 01/19/24 levofloxacin 750 mg tablet 750 mg PO DAILY 01/19/24 01/19/24 tiotropium 2.5 mcg-olodaterol 2.5 2.5 puff inhalation DIRECTED 01/19/24 01/19/24 mcg/actuation mist for inhalation (Stiolto Respimat) varenicline 0.5 mg tablet 0.5 mg PO DAILY 01/19/24 01/19/24 Previous Rx's ?Medication ?Instructions ?Recorded azithromycin 250 mg tablet See Rx Instructions PO .COMPLEX #6 12/28/22 (Zithromax Z-Prieto) tabs fluconazole 150 mg tablet 150 mg PO Q3D 2 doses #2 tabs 12/28/22 prednisone 20 mg tablet 20 mg PO BID #10 tabs 12/28/22 nitrofurantoin 100 mg PO BID 5 days #10 caps 02/18/23 monohydrate/macrocrystals 100 mg capsule (Macrobid) prednisone 20 mg tablet 40 mg (2 x 20 mg) PO BID 5 days 02/18/23 #20 tabs benzonatate 100 mg capsule 100 mg PO TIDP PRN Cough #30 caps 01/19/24 levofloxacin 500 mg tablet 500 mg PO DAILY #7 tabs 01/19/24 methylprednisolone 4 mg tablets in 4 mg PO DIRECTED 6 days #21 tabs 01/19/24 a dose pack Allergies Allergy/AdvReac Type Severity Reaction Status Date / Time hydrocodone [From LORTAB] Allergy Unknown PASS OUT Verified 12/28/22 13:37 [facility] Disclaimer: The information contained in this section may have been updated after the patient was seen, as this information can be updated by other users. Medical History (Updated 01/19/24 @ 15:57 by Kota Gregory APRN) History of COPD Neuropathy Hyperlipidemia Hypertension Surgical History (Updated 12/28/22 @ 13:41 by Eris Little) History of total right knee replacement Hx of tonsillectomy Family History (Updated 12/28/22 @ 13:42 by Eris Little) Other No significant family history Social History (Updated 12/28/22 @ 13:43 by Eris Little) Smoking Status: Current every day smoker tobacco type: cigarettes packs per day: 1 alcohol intake: current alcohol intake frequency: holidays/special occasions only current occupational status: retired Travel in the last 8 weeks: None ROS Obtained: Yes All systems reviewed & no additional complaints except as documented Constitutional Constitutional: Reports chills, Reports fever(s) and Denies headache(s) Eyes Eyes: Denies eye discharge ENT Ears, Nose, Mouth, and Throat: Reports as per HPI and Denies headache(s) Cardiovascular Cardiovascular: Denies chest pain Respiratory Respiratory: Denies chest congestion and Reports cough Gastrointestinal Gastrointestingal: Reports nausea; Denies abdominal pain, constipation, cramping, diarrhea or vomiting Musculoskeletal Musculoskeletal: Denies arthralgias Integumentary/Breasts Skin/Breast: Denies rash Neurologic Neurologic: Denies confusion, Denies headache(s) and Denies paresthesias Physical Exam General General appearance: alert and in no apparent distress Head Head exam: atraumatic, normocephalic and normal inspection Eye Eye exam: Present normal appearance, PERRL and EOMI ENT ENT exam: Present normal exam, normal oropharynx, mucous membranes moist, TM's normal bilaterally and normal external ear exam Neck Neck exam: Present normal inspection, full ROM and trachea midline; Absent meningismus or lymphadenopathy Chest Chest inspection: Present normal inspection and symmetric chest wall rise; Absent tenderness Respiratory Respiratory exam: Present normal lung sounds bilaterally; Absent respiratory distress Cardiovascular Cardiovascular exam: Present regular rate and normal rhythm; Absent JVD Abdominal Exam Abdominal exam: Present soft and normal bowel sounds; Absent distention, tenderness or guarding Extremities Exam Extremities exam: Present normal inspection, full ROM and normal capillary refill; Absent calf tenderness Back Exam Back exam: Present normal inspection; Absent tenderness Neurological Exam Neurological exam: Present alert, oriented X3, CN II-XII intact, normal gait and reflexes normal; Absent motor sensory deficit Psychiatric Psychiatric exam: Present normal affect and normal mood Skin Skin exam: Present warm, dry, intact and normal color Lymphatic Lymphatic Findings: no adenopathy Medical Decision Making Medical Records Medical records reviewed: No I reviewed the patient's medical records. Screening: Per USPSTF and CDC recommendations, given the prevalence of disease in our region, it is our hospital?s policy to screen for HIV and viral Hepatitis for all patients aged 18 and over and those with ongoing risk factors. Josiah Inquiry Pt receiving controlled substance: No Radiology Data #1: Image(s): Chest Image Reviewed: Yes I reviewed the patient's radiology image and Yes I have reviewed radiologist's interpretation Preliminary Findings: Abnormal Accession No. : [id number] Patient Name / ID : Lc Sharp / [id number] Exam Date : 01/19/2024 15:10:28 ( Final ) Study Comment : Sex / Age : F / 78Y Creator : YOLIS BAUTISTA MD Dictator : Toaster Element Repairer : Case Managers : YOLIS BAUTISTA MD Approver2 : Report Date : 01/19/2024 17:30:59 My Comment : PROCEDURE INFORMATION: Exam: XR Chest Exam date and time: 01/19/2024 3:10 PM Age: 78 years old Clinical indication: Smoker's cough; Additional info: Weakness, cough TECHNIQUE: Imaging protocol: Radiologic exam of the chest. Views: 2 views. COMPARISON: CR XR CHEST 2V 12/28/2022 3:20 PM FINDINGS: Lungs: Bilateral lower lobe airspace disease, greater on the left. Pleural spaces: Unremarkable. No pleural effusion. No pneumothorax. Heart/Mediastinum: Unremarkable. No cardiomegaly. Bones/joints: Unremarkable. IMPRESSION: Bilateral lower lobe pneumonia. Medical Decision Narrative: She refused transfer to the er. She states that she would rather try to be treated at home first. She is agreeable to return to the er ciara if she gets any worse.
[2024-01-19 15:05] VITALS: BP 137/69; PULSE 86; RESP 22; TEMP 38.2; O2SAT 96; BMI 23.0
[2024-01-19 15:10] LABS: POC Glucose,Bedside 149 (70-110)
--- NOTE | 2024-01-19 15:12 | XR_ITS ---
PROCEDURE INFORMATION: Exam: XR Chest Exam date and time: 01/19/2024 3:10 PM Age: 78 years old Clinical indication: Smoker's cough; Additional info: Weakness, cough TECHNIQUE: Imaging protocol: Radiologic exam of the chest. Views: 2 views. COMPARISON: CR XR CHEST 2V 12/28/2022 3:20 PM FINDINGS: Lungs: Bilateral lower lobe airspace disease, greater on the left. Pleural spaces: Unremarkable. No pleural effusion. No pneumothorax. Heart/Mediastinum: Unremarkable. No cardiomegaly. Bones/joints: Unremarkable. IMPRESSION: Bilateral lower lobe pneumonia.
[2024-01-19 15:18] LABS: UTC Influenza A Antigen Negative (Negative)
[2024-01-19 15:19] LABS: UTC Influenza B Antigen Negative (Negative)
[2024-01-19] MEDS: cefTRIAXone 1GM VIAL 1 GM IM (15:40)
[2024-01-19] MEDS: METHYLPREDNISOLONE SOD SUCC 125MG VIAL 125 MG IM (15:40)
[2024-01-19] MEDS: LIDOCAINE 1% 5ML PF VIAL IM (15:40)
[2024-01-19 16:05] LABS: Adenovirus,PCR Not Detected (NotDetected); Bordetella Pertussis Not Detected (NotDetected); Chlamydophila Pneumoniae, PCR Not Detected (NotDetected); Coronavirus 19, PCR Not Detected (NotDetected); Coronavirus 229E Not Detected (NotDetected); Coronavirus NL63 Not Detected (NotDetected); Coronavirus OC43 Not Detected (NotDetected); Coronovirus HKU1,PCR Not Detected (NotDetected); Human Metapneumovirus Not Detected (NotDetected); Influenza A, PCR Not Detected (NotDetected); Influenza AH1, 2009 Not Detected (NotDetected); Influenza AH1, PCR Not Detected (NotDetected); Influenza AH3,PCR Not Detected (NotDetected); Influenza B, PCR Not Detected (NotDetected); Mycoplasma Pneumoniae, PCR Not Detected (NotDetected); Parainfluenza 1, PCR Not Detected (NotDetected); Parainfluenza 2, PCR Not Detected (NotDetected); Parainfluenza 3, PCR Not Detected (NotDetected); Parainfluenza 4, PCR Not Detected (NotDetected); Respiratory Syncytial Virus Not Detected (NotDetected); Rhinovirus/Enterovirus Not Detected (NotDetected)
[2024-01-19 16:17] VITALS: BP 137/89; PULSE 86; RESP 20; TEMP 38.2
== END 2024-01-19 16:18 | disposition home or self-care (01) ==
PROVIDERS: Emergency Provider Nurse Practitioner Family; PCP Internal Medicine Adolescent Medicine
DX: J18.9 Pneumonia, unspecified organism (principal)
CPT/HCPCS: 71046; 82962; 87265; 87486; 87581; 87632; 87635; 87804; 96372; 99213; G0381; J0696; J2919

== ENCOUNTER 2024-08-24 10:37 | Outpatient (CLI) | payer MEDICARE, SELFPAY ==
--- NOTE | 2024-08-24 10:39 | CT_ITS ---
FINAL REPORT TECHNIQUE: Axial CT images of the chest were obtained without contrast. Low-dose protocol was utilized. This study was performed with techniques to keep radiation doses as low as reasonably achievable (ALARA). Individualized dose reduction techniques using automated exposure control or adjustment of mA and/or kV according to the patient's size were employed. CLINICAL HISTORY: former smoker. quit smoking 3 months ago. 2ppd for 59 years COMPARISON: 08/03/2022 and 11/28/2018 FINDINGS: CT CHEST WITHOUT, LOW DOSE SCREENING CT Di Vol: 2.90 mGy DLP: 100.55 mGy*cm There is no axillary, mediastinal, or hilar adenopathy. The heart size is normal. There is no pleural or pericardial effusion. The lung windows show stable small nodules in the right upper lobe, well seen on axial image 99 of series 2. Calcified granulomas are noted in the left upper lobe. No new suspicious nodules identified. Limited images of the upper abdomen demonstrate no acute findings. IMPRESSION: Right upper lobe lung nodules stable to 2019. LR Category 1: 12 month follow-up low-dose chest CT is recommended per Fleischner criteria. Reviewed, Interpreted and Dictated by Tico Abraham MD Transcribed by Loreta Sanchez Authenticated and [facility]
== END 2024-08-24 23:59 | disposition home or self-care (01) ==
LOC: RAD 10:38
PROVIDERS: PCP Internal Medicine Adolescent Medicine; Visit Provider Internal Medicine Adolescent Medicine
DX: Z12.2 Encounter for screening for malignant neoplasm of respiratory organs (principal); R91.8 Other nonspecific abnormal finding of lung field; Z87.891 Personal history of nicotine dependence
CPT/HCPCS: 71271